=== PATIENT | male | born 1985 | race Caucasian/White ===

== ENCOUNTER 2017-12-30 23:10 | Inpatient (IN) | payer SELFPAY ==
[~2017-12-30] VITALS: Ht 188 cm; Wt 119.5 kg
--- NOTE | 2017-12-30 23:20 | NUR ---
MD CRUZ AT BEDSIDE FOR MSE
[2017-12-30] MEDS ORDERED: MORPHINE SULFATE 4 MG/1 ML DISP.SYRIN IV ONE (23:30)
[2017-12-30] MEDS ORDERED: PROP10TA10 PO (23:31)
[2017-12-30] MEDS ORDERED: METH10TA80 PO (23:31)
[2017-12-30] MEDS ORDERED: MORPHINE SULFATE 4 MG/1 ML DISP.SYRIN ONE (23:40)
[2017-12-30 23:44] LABS: BASOPHILS % (AUTO) 0.2 % (0.0-2.0); EOSINOPHILS # (AUTO) 0.2 K/uL (0.0-0.7); EOSINOPHILS % (AUTO) 1.9 % (0.0-7.0); HEMATOCRIT 43.3 % (36.7-47.1); HEMOGLOBIN 14.8 g/dL (12.5-16.3); LYMPHOCYTES # (AUTO) 2.5 K/uL (20.0-40.0); LYMPHOCYTES % (AUTO) 28.3 % (20.5-51.5); MEAN CORPUSCULAR HEMOGLOBIN 27.8 uug (23.8-33.4); MEAN CORPUSCULAR HGB CONC 34 g/dL (32.5-36.3); MEAN CORPUSCULAR VOLUME 81.4 fL (73.0-96.2); MONOCYTES # (AUTO) 0.6 K/uL (2.0-10.0); MONOCYTES % (AUTO) 7.1 % (0.0-11.0); NEUTROPHILS # (AUTO) 5.5 K/uL (1.8-8.9); NEUTROPHILS % (AUTO) 62.5 % (38.5-71.5); PLATELET COUNT (AUTO) 170 K/uL (152-348); RED BLOOD CELL COUNT(AUTO) 5.32 MIL/uL (4.06-5.63); WHITE BLOOD COUNT (AUTO) 8.7 K/uL (3.6-10.2)
[2017-12-31 00:14] LABS: CREATININE 1.1 mg/dL (0.6-1.3); POTASSIUM 3.6 mmol/L (3.5-5.1)
[2017-12-31 00:20] LABS: BILIRUBIN,DIRECT 0.3 mg/dL (0.0-0.2); BILIRUBIN,TOTAL 1.2 mg/dL (0.2-1.0); TOTAL PROTEIN, SERUM 7.9 g/dL (6.4-8.2)
--- NOTE | 2017-12-31 01:26 | NUR ---
US TECH AT BEDSIDE
--- NOTE | 2017-12-31 01:48 | NUR ---
US TECH LEAVES BEDSIDE. PT'S PAIN REASSESSED.
[2017-12-31] MEDS ORDERED: MORPHINE SULFATE 2 MG/1 ML DISP.SYRIN ONE (02:12)
[2017-12-31] MEDS ORDERED: MORPHINE SULFATE 4 MG/1 ML DISP.SYRIN IV ONE (02:15)
--- NOTE | 2017-12-31 02:15 | NUR ---
PT IN ROUTE TO CT IN [facility] WITH TRANSPORTER
--- NOTE | 2017-12-31 02:24 | NUR ---
PT RETURNS FROM CT IN [facility] WITH TRANSPORTER
[2017-12-31 03:31] LABS: *BILIRUBIN,URIN 1+ (NEGATIVE); *BLOOD, URINE NEGATIVE (NEGATIVE); *CLARITY,URINE CLEAR (CLEAR); *COLOR,URINE AMBER (YELLOW); *KETONES,URINE TRACE (NEGATIVE); *PROTEIN,URINE NEGATIVE (NEGATIVE); *UROBILINOGEN,URINE 0.2 E.U./dl (NORMAL); LEUKOCYTE ESTERASE ,URINE TRACE (NEGATIVE); NITRITE, URINE NEGATIVE (NEGATIVE); PH,URINE 5.5 (5.0-8.0); UGLUCOSE NEGATIVE (NEGATIVE)
[2017-12-31 03:33] LABS: BACTERIA,URINE NONE SEEN /HPF (NONE SEEN); RBC,URINE 0-3 /HPF (0-3); SQUAMOUS EPITHELIAL CELL,UR FEW /HPF (NONE SEEN); WBC,URINE 0-3 /HPF (0-3)
[2017-12-31 03:34] LABS: MUCUS,URINE FEW /LPF (0-FEW)
--- NOTE | 2017-12-31 05:04 | NUR ---
UPDATE ON PT STATUS LISA
--- NOTE | 2017-12-31 05:06 | NUR ---
REPORT GIVEN TO ANGELA ROSE RN
--- NOTE | 2017-12-31 05:20 | NUR ---
Pt. admitted to [facility], under care of Dr. HARMON Belongs List completed
[2017-12-31] MEDS ORDERED: ACETAMINOPHEN 650 MG SUPP.RECT RC PRN (05:30)
[2017-12-31] MEDS ORDERED: ONDANSETRON 4 MG/2 ML VIAL IV PRN (05:30)
[2017-12-31] MEDS ORDERED: MORPHINE SULFATE 2 MG/1 ML DISP.SYRIN IV PRN (05:30)
--- NOTE | 2017-12-31 05:30 | NUR ---
RECEIVED REPORT FROM ANOOP KAUR FROM ER. PT ARRIVED ON MED SURG FLOOR VIA GURNEY. PT AMBULATORY, SELF AMBULATED TO BED. PT DENIES ANY PAIN, SOB, N/V, C/P AT THIS TIME. FRIEND AT BEDSIDE. PT IS UNABLE TO SPEAK CLEARLY DUE TO MOUTH PAIN.
[2017-12-31 05:37] VITALS: BP 113/58
[2017-12-31] MEDS ORDERED: IV DEXTROSE 5%-0.9%NS+20MeqKCL 1,000 ML IV ONE (06:05)
[2017-12-31] MEDS ORDERED: PIPERACILLIN/TAZOBACTAM/D5W 50 ML IV ONE (06:06)
[2017-12-31] MEDS: PIPERACILLIN/TAZOBACTAM/D5W 50 ML IV SCH ×4 (06:15→23:04)
[2017-12-31] MEDS: POTASSIUM CHLORIDE 20 MEQ in IV D5/ 0.9% NACL 1,000 ML IV PRN ×2 (06:16→16:35)
[2017-12-31] MEDS: PANTOPRAZOLE SODIUM 40 MG VIAL IV SCH (06:18)
--- NOTE | 2017-12-31 06:30 | NUR ---
Kept NPO as ordered. No pain complaint at this time. IVF D5NS w/ 20mEq KCl at 100 ml/hr started. Zosyn 3.376 gm IVPB infused. Afebrile.
--- NOTE | 2017-12-31 07:15 | NUR ---
Patient asleep, no acute resp distress. Vital signs WNL, report given to nurse ANOOP Nevarez.
--- NOTE | 2017-12-31 08:00 | NUR ---
ALERT COOPERATE NO SOB OR PAIN AT THIS TIME KEEP NPO CONTINUE IVF INFUSION WELL RT AC RESTING QUIET WITH CALL LIGHT IN REACH AND REMIOND TO CALL WHEN NEEDED
[2017-12-31] MEDS: METHIMAZOLE 5 MG TABLET PO SCH ×2 (09:32→16:35)
--- NOTE | 2017-12-31 10:00 | NUR ---
DR WOLFE SEE PATIENT AND LAB RESULT AND PATIENT CONDITION C/O OF MOUTH/TONGUE PAIN AND HAVING WHITE PASTE ON DR WAS AWARE AND MED WAS ORDERED
[2017-12-31 11:00] VITALS: BP 109/59
[2017-12-31] MEDS: NYSTATIN SUSPENSION 5 ML LIQUID UDC PO SCH ×3 (11:23→20:38)
--- NOTE | 2017-12-31 13:00 | NUR ---
DR LAW SEEN PATIENT FOR CONSULT THIS AFTERNOON AND ORDER LAB WORK TODAY STILL KEEP NPO AND CONTINUE IVF
[2017-12-31 15:45] VITALS: BP 106/62
[2017-12-31] MEDS: FLUCONAZOLE 400MG /NS 200ML IV 400 MG in PREMIXED 1 EACH IV SCH (17:22)
--- NOTE | 2017-12-31 17:30 | NUR ---
STABLE HEMODYNAMIC STATUS PAIN AND NAUSEA UNDER CONTROL SAFETY MEASURE PROVIDED CALL LIGHT IN REACH
--- NOTE | 2017-12-31 19:30 | NUR ---
Patient stable at start of shift with no acute distress. Vital signs within range. Pertinent assessment completed. IV on right forearm running with IV fluids. No s/s of infiltration or swelling noted. Patient denies pain & SOB. Bed in low position & locked. Call light within reach. Will continue to monitor through shift.
[2017-12-31 20:07] VITALS: BP 107/62
[2018-01-01 04:49] VITALS: BP 109/68
[2018-01-01] MEDS: PIPERACILLIN/TAZOBACTAM/D5W 50 ML IV SCH ×4 (06:09→23:04)
--- NOTE | 2018-01-01 06:28 | NUR ---
Patient slept well through shift. Compliant with care. All needs attended to. All medications administered per MD order. Safety measures maintained. Call light within reach. Will endorse to day shift nurse.
[2018-01-01] MEDS: PANTOPRAZOLE SODIUM 40 MG VIAL IV SCH (06:33)
[2018-01-01 08:00] VITALS: BP 108/65
[2018-01-01] MEDS: NYSTATIN SUSPENSION 5 ML LIQUID UDC PO SCH ×4 (08:25→20:19)
[2018-01-01] MEDS: POTASSIUM CHLORIDE 20 MEQ in IV D5/ 0.9% NACL 1,000 ML IV PRN (08:25)
[2018-01-01] MEDS: METHIMAZOLE 5 MG TABLET PO SCH ×2 (08:27→17:16)
[2018-01-01 11:01] VITALS: BP 121/44
[2018-01-01] MEDS ORDERED: IOHEXOL 300MG/ML 100 ML INFUS..BTL ONE (11:02)
[2018-01-01] MEDS ORDERED: IV NORMAL SALINE 100 ML ONE (11:02)
[2018-01-01] MEDS ORDERED: SWABABLE VALVE TRANSFER SET EA MC ONE (11:02)
[2018-01-01 15:38] VITALS: BP 128/52
--- NOTE | 2018-01-01 16:15 | NUR ---
Relayed pt's Abd/Pelvis CT with contrast results to Dr. Paz. Per , forward results to Dr. Hines and to order GI Consult with Dr. Worley. Telephone order read back and verified. Pt made aware.
--- NOTE | 2018-01-01 16:20 | NUR ---
Spoke with Cathy Neil NP regarding pt's GI consult order. Relayed pt's CBC, CMP, HIV 1&2 antibody, Abd/Pelvis CT scan w/ contrast results. No new orders at this time. Per YASH Morgan follow up with surgeon.
--- NOTE | 2018-01-01 16:23 | NUR ---
Spoke with Dr. Hines, Wm @ . Relayed pt's Abd/Pelvis CT scan results with new order for STAT CBC. T.O. read back and verified. Noted and carried out. Pt made aware.
[2018-01-01] MEDS: FLUCONAZOLE 400MG /NS 200ML IV 400 MG in PREMIXED 1 EACH IV SCH (17:16)
[2018-01-01 17:31] LABS: BASOPHILS % (AUTO) 0.3 % (0.0-2.0); EOSINOPHILS # (AUTO) 0.1 K/uL (0.0-0.7); EOSINOPHILS % (AUTO) 1.1 % (0.0-7.0); HEMATOCRIT 43.7 % (36.7-47.1); HEMOGLOBIN 14.8 g/dL (12.5-16.3); LYMPHOCYTES # (AUTO) 1.6 K/uL (20.0-40.0); MEAN CORPUSCULAR HEMOGLOBIN 27.6 uug (23.8-33.4); MEAN CORPUSCULAR HGB CONC 34 g/dL (32.5-36.3); MEAN CORPUSCULAR VOLUME 81.8 fL (73.0-96.2); MONOCYTES # (AUTO) 0.5 K/uL (2.0-10.0); MONOCYTES % (AUTO) 7.6 % (0.0-11.0); NEUTROPHILS # (AUTO) 4.5 K/uL (1.8-8.9); PLATELET COUNT (AUTO) 151 K/uL (152-348); RED BLOOD CELL COUNT(AUTO) 5.34 MIL/uL (4.06-5.63); WHITE BLOOD COUNT (AUTO) 6.7 K/uL (3.6-10.2)
--- NOTE | 2018-01-01 18:01 | NUR ---
Relayed pt's Stat CBC results to Wm Campo. Per MD he will think about whether the pt will need surgery. Obtained new order to d/c NPO status and start Regular Diet as tolerated. T.O. read back and verified. Noted and carried out. Pt made aware.
[2018-01-01] MEDS: BENZOCAINE ORAL CARE 12 ML BOTTLE MM PRN ×2 (19:05→21:19)
--- NOTE | 2018-01-01 19:30 | NUR ---
Received patient from day shift nurse in stable condition. No acute distress noted. Vital signs within range. Pertinent assessment completed. Patient denies Pain & SOB. Per patient his abdominal pain occurs only when he eats. Patient noted with oral thrush on tongue with an open blister. IV on left forearm running well with fluid. No s/s of infiltration or swelling at IV site. Call light within reach. Will continue to monitor through shift.
[2018-01-01 20:00] VITALS: BP 118/66
--- NOTE | 2018-01-01 20:30 | NUR ---
Patient seen & consulted by YASH Neil from GI. New orders given for patient. Will carry out order & continue to monitor.
[2018-01-01] MEDS ORDERED: SIMETHICONE 40 MG/0.6 ML 30 ML BOTTLE PO PRN (23:00)
[2018-01-02] MEDS: POTASSIUM CHLORIDE 20 MEQ in IV D5/ 0.9% NACL 1,000 ML IV PRN ×2 (01:35→15:15)
[2018-01-02 04:21] VITALS: BP 107/67
[2018-01-02] MEDS: PIPERACILLIN/TAZOBACTAM/D5W 50 ML IV SCH ×4 (05:04→23:04)
--- NOTE | 2018-01-02 05:57 | NUR ---
Patient stable through shift with no acute distress. Vital signs within range. Compliant with care. Patient denying abdominal pain. All needs attended to promptly. Medications administered per MD order. Safety measures maintained. Call light in reach. Will endorse to day shift nurse.
[2018-01-02] MEDS: PANTOPRAZOLE SODIUM 40 MG VIAL IV SCH (06:31)
[2018-01-02 06:58] LABS: BASOPHILS % (AUTO) 0.2 % (0.0-2.0); EOSINOPHILS # (AUTO) 0.1 K/uL (0.0-0.7); EOSINOPHILS % (AUTO) 1.7 % (0.0-7.0); HEMATOCRIT 43.9 % (36.7-47.1); HEMOGLOBIN 14.9 g/dL (12.5-16.3); LYMPHOCYTES # (AUTO) 2.2 K/uL (20.0-40.0); LYMPHOCYTES % (AUTO) 32.6 % (20.5-51.5); MEAN CORPUSCULAR HEMOGLOBIN 27.8 uug (23.8-33.4); MEAN CORPUSCULAR HGB CONC 34 g/dL (32.5-36.3); MONOCYTES # (AUTO) 0.5 K/uL (2.0-10.0); MONOCYTES % (AUTO) 7.9 % (0.0-11.0); NEUTROPHILS # (AUTO) 3.9 K/uL (1.8-8.9); NEUTROPHILS % (AUTO) 57.6 % (38.5-71.5); PLATELET COUNT (AUTO) 177 K/uL (152-348); RED BLOOD CELL COUNT(AUTO) 5.36 MIL/uL (4.06-5.63); WHITE BLOOD COUNT (AUTO) 6.7 K/uL (3.6-10.2)
--- NOTE | 2018-01-02 07:25 | NUR ---
Rec'd pt in bed, asleep. Easily arousable to name. On RA, no SOB. No s/s of acute distress noted. No significant events overnight. Continues to deny abdominal pain. Denies N/V/D. LFA 22g in place and patent, infusing D5 NS + Kcl 20 mEq @ 100ml/hr. Damaris well. No s/s of complications to site. No s/s of fluid overload noted. All safety precautions in place at this time. Will continue to monitor. Addendum: 01/02/18 at 1724 by SCARLETT LOVE RN Oral thrush improving. White hairlike top layer on tongue decreasing. Open sores pain managed with topical Anbesol Benzocaine PRN.
--- NOTE | 2018-01-02 07:27 | NUR ---
TEXTED DR. PAGE FOR [facility] AP[facility].
[2018-01-02] MEDS ORDERED: SIMETHICONE 80 MG TAB.CHEW PO PRN (07:30)
--- NOTE | 2018-01-02 07:41 | NUR ---
[facility] APPROVED
[2018-01-02 08:00] VITALS: BP 102/66
[2018-01-02] MEDS: BENZOCAINE ORAL CARE 12 ML BOTTLE MM PRN ×2 (08:10→15:19)
[2018-01-02] MEDS: METHIMAZOLE 5 MG TABLET PO SCH ×2 (08:10→16:52)
[2018-01-02] MEDS: NYSTATIN SUSPENSION 5 ML LIQUID UDC PO SCH ×4 (08:10→20:05)
--- NOTE | 2018-01-02 08:16 | NUR ---
Seen and examined by Dr. Paz.
--- NOTE | 2018-01-02 09:00 | NUR ---
Pt with order for MRCP without contrast, to be done at [facility]. job superintendent arranged for [id number]. Pt made aware.
[2018-01-02 11:12] VITALS: BP 100/50
--- NOTE | 2018-01-02 11:46 | NUR ---
Pt picked up by [facility] EMT staff. Pt left in fair condition. No s/s of acute distress noted. Denies pain. LFA IV access in place and patent. Endorsed to technology manager.
--- NOTE | 2018-01-02 14:03 | NUR ---
Pt returned from MRI appt at [facility]. In fair condition. No s/s of acute distress noted. Denies pain. Connected back to IVF. In bed, watching a movie on his cellphone. All safety precautions in place. Will monitor.
[2018-01-02 15:23] VITALS: BP 113/72
[2018-01-02] MEDS: FLUCONAZOLE 400MG /NS 200ML IV 400 MG in PREMIXED 1 EACH IV SCH (16:04)
--- NOTE | 2018-01-02 16:26 | NUR ---
Pt seen and examined by YOSELIN Randolph MD.
--- NOTE | 2018-01-02 16:29 | NUR ---
Called Wm Campo and left message regarding relaying pt's MRCP results. Awaiting call back. Pt made aware.
--- NOTE | 2018-01-02 17:50 | NUR ---
Called Richar Mares @ and left msg regarding relaying pt's MRCP results. Awaiting call back.
--- NOTE | 2018-01-02 18:31 | NUR ---
Pt in sitting up in bed with friend at bedside. Tolerating PO diet. Still awaiting call back from Dr. Worley and Dr. Hines. Pt continues to deny abdominal discomfort. Receiving Zosyn and Flagyl IV, no adverse side effects noted. Oral thrush continues to improve. Tongue open sore pain managed with PRN topical Anbesol Benzocaine. Pt denies N/V/D. No acute distress noted. All safety precautions in place. Pending collection for stool specimen. Pt aware. Will continue to monitor.
--- NOTE | 2018-01-02 19:30 | NUR ---
Received patient in stable condition with no acute distress. Family at the bedside. Vital signs within range. Pertinent assessment completed. Patient denies abdominal pain & discomfort. Oral thrush is improving. Will continue to administer PRN topical per MD order for pain management. Per day shift RN, patient tolerating PO diet. IV fluids running into left forearm with no s/s of infiltration or swelling. Per day shift nurse, waiting for call back from Dr. Worley & Dr. Hines for the MRCP results. Call light within reach of patient. Will continue to monitor through shift.
[2018-01-02 20:00] VITALS: BP 138/72
--- NOTE | 2018-01-02 23:40 | NUR ---
Wm Campo spoke with patient and family regarding results & plan. Per MD there's a small chance for appendicitis. Possible surgery in AM to remove appendix & look at liver to obtain liver biopsy. MD to f/u with OR team & nursing instrument assembly supervisor. Patient currently denying abdominal pain & discomfort. Will continue to monitor through shift.
[2018-01-03 04:34] VITALS: BP 121/65
[2018-01-03] MEDS: POTASSIUM CHLORIDE 20 MEQ in IV D5/ 0.9% NACL 1,000 ML IV PRN (04:37)
[2018-01-03] MEDS: PIPERACILLIN/TAZOBACTAM/D5W 50 ML IV SCH ×4 (05:14→23:32)
[2018-01-03] MEDS: PANTOPRAZOLE SODIUM 40 MG TABLET.DR PO SCH (06:31)
--- NOTE | 2018-01-03 06:57 | NUR ---
Patient scheduled for Surgery at 11am. Spoke with MD Hines, consent order confirmed. Patient and family aware of procedure. Patient has been NPO since midnight. Will endorse to day shift nurse to have patient sign consent form for sx. quality assurance supervisor aware. OR team aware of patient sx.
--- NOTE | 2018-01-03 07:24 | NUR ---
Received pt sleeping in bed on his left side. No immediate s/s of SOB, pain, distress or discomfort noted
[2018-01-03] MEDS: NYSTATIN SUSPENSION 5 ML LIQUID UDC PO SCH ×4 (08:08→20:10)
[2018-01-03] MEDS: METHIMAZOLE 5 MG TABLET PO SCH ×2 (08:08→16:54)
[2018-01-03] MEDS ORDERED: FENTANYL CITRATE 100 MCG/2 ML AMPUL ONE (09:43)
[2018-01-03] MEDS ORDERED: MIDAZOLAM HCL 2 MG/2 ML VIAL ONE (09:43)
[2018-01-03] MEDS ORDERED: ROCURONIUM BROMIDE 50 MG/5 ML VIAL ONE (09:44)
[2018-01-03] MEDS ORDERED: LIDOCAINE 1%-EPI 1:100,000 20 ML VIAL ONE (10:31)
[2018-01-03] MEDS ORDERED: BUPIVACAINE 0.25% 30 ML VIAL ONE (10:31)
[2018-01-03] MEDS ORDERED: LIDOCAINE HCL 1% 20 ML VIAL ONE (10:32)
--- NOTE | 2018-01-03 10:41 | NUR ---
Pt is not in his room and is down in surgery for Diagnostic Laparoscopy, Appendectomy, Possible Live Biopsy
[2018-01-03 11:22] VITALS: BP 129/72
--- NOTE | 2018-01-03 12:00 | NUR ---
1200 Zosyn not given on the Med-Surg floor. OR nurse came to picker feeder Zosyn to give down in the OR room
[2018-01-03] MEDS ORDERED: HYDROMORPHONE 2 MG/1 ML DISP.SYRIN ONE (13:38)
--- NOTE | 2018-01-03 14:41 | NUR ---
Received pt from OR room. Pt is c/o of pain around the abdomen. Orders to resume previous medications orders. [place] 5/325 1 tab PO Q4HRS PRN, MOM 30cc Q12 HRS, clear liquids diet and LR at 100 ml/hr until tolerating PO then saline lock
[2018-01-03] MEDS ORDERED: MAGNESIUM HYDROXIDE 30 ML LIQUID UDC PO PRN (15:00)
[2018-01-03] MEDS ORDERED: HYDROCODONE/APAP 5-325MG TABLET PO PRN (15:00)
[2018-01-03 15:32] VITALS: BP 136/79
[2018-01-03] MEDS: IV LACTATED RINGERS SOLUTION 1,000 ML IV PRN (16:27)
[2018-01-03] MEDS: FLUCONAZOLE 200 MG TABLET PO SCH (16:57)
--- NOTE | 2018-01-03 17:25 | NUR ---
Noted pt. is tolerating clear liquid diet. Pt refused the 5pm scheduled oral suspension Nystatin.
--- NOTE | 2018-01-03 17:57 | NUR ---
A regular diet was ordered after noting the pt tolerating a clear liquid diet. Caregiver brought outside food for the pt. Informed the pt to inform me if he experienced any N/V.
[2018-01-03 18:06] LABS: *ANTI-SCLERODERMA-70 AB <0.2 AI (0.0-0.9); *SJOGREN'S ANTI-SS-A <0.2 AI (0.0-0.9); *SJOGREN'S ANTI-SS-B <0.2 AI (0.0-0.9); *SMITH ANTIBODIES <0.2 AI (0.0-0.9); ANTI-DNA(DS) AB, QN <1 IU/mL (0-9)
[2018-01-03] MEDS ORDERED: GLYCOPYRROLATE 0.2 MG/ML VIAL MC ONE (18:59)
[2018-01-03] MEDS ORDERED: DEXAMETHASONE SOD PHOSPHATE 4 MG INJ IV ONE (18:59)
[2018-01-03] MEDS ORDERED: LIDOCAINE HCL 2% 20 ML VIAL MC ONE (18:59)
[2018-01-03] MEDS ORDERED: SEVOFLURANE 250 ML BOTTLE IH ONE (18:59)
[2018-01-03] MEDS ORDERED: NEOSTIGMINE METHYLSULFATE 10 MG/10 ML VIAL IV ONE (18:59)
[2018-01-03] MEDS ORDERED: ONDANSETRON 4 MG/2 ML VIAL IV ONE (18:59)
[2018-01-03] MEDS ORDERED: PROPOFOL 200 MG/20 ML BOTTLE IV ONE (18:59)
[2018-01-03] MEDS ORDERED: CEFAZOLIN 1 G VIAL MC ONE (18:59)
--- NOTE | 2018-01-03 19:30 | NUR ---
RECEIVED PATIENT IN BED ALERT, ORIENTED, ABLE TO MAKE NEEDS KNOWN, NO SOB NO CHEST PAIN NOTED, NO COMPLAIN OF PAIN AT THIS TIME, PATIENT USES URINAL FOR VOIDING, CALL LIGHT WITHIN REACH.
[2018-01-03 19:46] VITALS: BP 121/78
--- NOTE | 2018-01-03 21:11 | NUR ---
GAVE PATIENT INCENTIVE SPIROMETER, AND TAUGHT PATIENT TO DO DEEP BREATHING THROUGH THE USE OF SPIROMETER 10 TIMES EVERY HOUR WHILE AWAKE, PATIENT ABLE TO FOLLOW INSTRUCTIONS.
[2018-01-04 04:28] VITALS: BP 127/80
[2018-01-04] MEDS: PIPERACILLIN/TAZOBACTAM/D5W 50 ML IV SCH ×3 (05:36→17:31)
--- NOTE | 2018-01-04 05:57 | NUR ---
PATIENT SLEPT FOR FEW HOURS, DENIES PAIN, REFUSED TO TAKE PAIN MEDS. PATIENT DANGLE FOOT AND STAND UP AND SEATS AT THE BED, USES INCENTIVE SPIROMETER INSTRUCTED, USES URINAL FOR BLADDER ELIMINATION. CONT TO MONITOR.
[2018-01-04] MEDS: PANTOPRAZOLE SODIUM 40 MG TABLET.DR PO SCH (06:00)
[2018-01-04] MEDS: FLUCONAZOLE 200 MG TABLET PO SCH (08:10)
[2018-01-04] MEDS: NYSTATIN SUSPENSION 5 ML LIQUID UDC PO SCH ×3 (08:11→16:27)
[2018-01-04] MEDS: METHIMAZOLE 5 MG TABLET PO SCH ×2 (08:11→16:27)
--- NOTE | 2018-01-04 08:54 | NUR ---
Pt has discharge orders, pending clearance from Dr Burk. A call was placed to Dr. Burk, he gave clearance over the phone. Charge nurse aware. Dr. Burk wants insurance information relayed to him tashi from case management/social service.
[2018-01-04 11:56] VITALS: BP 107/59
--- NOTE | 2018-01-04 12:00 | NUR ---
Pt stated constipation and sore throat. Pain medication given, MOM given and educated the pt the importance of moving. Offered to guide the pt to walk in the hallways and pt refused. Informed pt the the sore throat could be in regards to the surgery from yesterday. Also informed the pt to drink lots of water and fluids
[2018-01-04] MEDS: IV LACTATED RINGERS SOLUTION 1,000 ML IV PRN (12:49)
[2018-01-04 15:23] VITALS: BP 111/61
--- NOTE | 2018-01-04 16:00 | NUR ---
Informed Brisa BERRIOS (DR. López) in regards to a sore throat the pt was c/o. WELT SEWER stated that she had talk to the pt in regards to the importance of walking and moving. That the sore throat was from the surgery
--- NOTE | 2018-01-04 19:30 | NUR ---
IV and ID band removed. Pt was able to change himself. Pt is in stable condition. Pt was guided down to lobby in a wheelchair and guided down by system trainer nurse
[2018-01-04 20:02] VITALS: BP 112/74
[2018-01-07 02:10] LABS: HEPATITIS Be ANTIGEN Negative (Negative)
== END 2018-01-04 19:00 | disposition home or self-care (01) | DRG 342 ==
LOC: ER 23:16 → MED 12-31 04:33
PROVIDERS: ADMIT Internal Medicine; ATTEND Internal Medicine
PROC: 0DTJ4ZZ Resection of Appendix, Percutaneous Endoscopic Approach (ICD-10-PCS; principal; 2018-01-03 12:00)
DX: K35.80 Unspecified acute appendicitis (principal); B37.0 Candidal stomatitis; D84.9 Immunodeficiency, unspecified; K76.89 Other specified diseases of liver; L30.9 Dermatitis, unspecified; E66.9 Obesity, unspecified; Z68.33 Body mass index [BMI] 33.0-33.9, adult; E05.00 Thyrotoxicosis with diffuse goiter without thyrotoxic crisis or storm; K76.0 Fatty (change of) liver, not elsewhere classified; D69.6 Thrombocytopenia, unspecified; Z87.19 Personal history of other diseases of the digestive system; E80.6 Other disorders of bilirubin metabolism
CPT/HCPCS: 36415; 70030-TC; 71045; 74181; 83520; 83690; 84443; 84481; 85025; 85651; 85730; 86038; 86140; 86256; 86677; 86704; 86705; 86706; 86708; 86709; 86803; 87340; 87350; 87806; 89055; A4663; A9150; C9113; J0690; J1100; J1170; J1450; J2250; J2270; J2405; J2543; J2710; J3010; J3480; J3490; J7030; J7040; J7042; J7120; Q9967